=== PATIENT | female | born 1940 | race Caucasian/White ===

== ENCOUNTER 2024-06-23 16:22 | Inpatient (IN) | payer BC ==
[~2024-06-23] VITALS: Ht 167.6 cm; Wt 56.7 kg
[2024-06-23 17:42] VITALS: BP_SYST 150; PULSE 62; RESP 16; TEMP 97.6; O2SAT 99
[2024-06-23 17:49] LABS: BASOPHILS # (AUTO) 0.1 K/uL (0.0-0.2); BASOPHILS % (AUTO) 0.8 % (0.0-2.0); EOSINOPHILS # (AUTO) 0.1 K/uL (0.0-0.4); EOSINOPHILS % (AUTO) 1.2 % (0.0-4.0); HEMATOCRIT 38.6 % (36-48); HEMOGLOBIN 13.6 g/dL (12.0-16.0); LYMPHOCYTES # (AUTO) 2.3 K/uL (1.0-5.5); LYMPHOCYTES % (AUTO) 31.4 % (20.5-51.5); MEAN CORPUSCULAR HEMOGLOBIN 31 pg (27-31); MEAN CORPUSCULAR HGB CONC 35 % (32-36); MEAN CORPUSCULAR VOLUME 88 fL (79.0-98.0); MONOCYTES # (AUTO) 0.5 K/uL (0.0-1.0); MONOCYTES % (AUTO) 7.1 % (1.7-9.3); NEUTROPHILS # (AUTO) 4.3 K/uL (1.8-7.7); NEUTROPHILS % (AUTO) 59.5 % (40.0-70.0); PLATELET COUNT (AUTO) 226 K/uL (130-430); RED BLOOD CELL COUNT(AUTO) 4.37 MIL/uL (4.2-6.2); RED CELL DISTRIBUTION WIDTH 13.3 % (9.0-15.0); WHITE BLOOD COUNT (AUTO) 7.2 K/uL (4.8-10.8)
[2024-06-23 18:01] LABS: ANION GAP 11 (5-15); CALCIUM 9.9 mg/dL (8.4-11.0); CARBON DIOXIDE 25 mmol/L (23-29); CHLORIDE 105 mmol/L (98-107); GLUCOSE 95 mg/dL (74-106); POTASSIUM 4.2 mmol/L (3.5-5.1); SODIUM SERUM 141 mmol/L (136-145); UREA NITROGEN, BLOOD 31 mg/dL (8-21)
[2024-06-23 18:02] LABS: CREATINE KINASE, TOTAL 156 U/L (26-192); CREATININE 1.39 mg/dL (0.55-1.30)
[2024-06-23] MEDS: ASPIRIN 81 MG TABLET(ECOTRIN) PO ONE (18:39)
[2024-06-23] MEDS ORDERED: ROSU10TA72 PO (19:13)
[2024-06-23] MEDS ORDERED: LEVO25TA7 PO (19:13)
[2024-06-23] MEDS ORDERED: LOSA25TA18 PO (19:13)
[2024-06-23] MEDS ORDERED: TRIA1CAP6 PO (19:14)
[2024-06-23] MEDS: 0.45% NACL 1,000 ML IV SCH (19:56)
[2024-06-23 21:16] VITALS: BP_SYST 137; PULSE 62; RESP 20; TEMP 96.8; O2SAT 100
[2024-06-23 21:19] VITALS: BP_SYST 131; PULSE 68; RESP 20; TEMP 97.7; O2SAT 100
[2024-06-23] MEDS ORDERED: ZOLPIDEM TARTRATE 5 MG TABLET PO PRN (22:15)
[2024-06-23] MEDS: MELATONIN 3 MG TABLET PO PRN (23:24)
[2024-06-24 00:11] VITALS: BP_SYST 122; PULSE 50; RESP 18; TEMP 96.8; O2SAT 100
[2024-06-24] MEDS: LEVOTHYROXINE SODIUM 0.025 MG TABLET PO SCH (06:16)
[2024-06-24 06:41] LABS: BASOPHILS % (AUTO) 0.8 % (0.0-2.0); EOSINOPHILS # (AUTO) 0.2 K/uL (0.0-0.4); HEMATOCRIT 35.8 % (36-48); HEMOGLOBIN 12.2 g/dL (12.0-16.0); LYMPHOCYTES % (AUTO) 38.4 % (20.5-51.5); MEAN CORPUSCULAR HEMOGLOBIN 30 pg (27-31); MEAN CORPUSCULAR HGB CONC 34 % (32-36); MEAN CORPUSCULAR VOLUME 89 fL (79.0-98.0); MONOCYTES # (AUTO) 0.4 K/uL (0.0-1.0); MONOCYTES % (AUTO) 8.4 % (1.7-9.3); NEUTROPHILS # (AUTO) 2.6 K/uL (1.8-7.7); NEUTROPHILS % (AUTO) 49.4 % (40.0-70.0); PLATELET COUNT (AUTO) 189 K/uL (130-430); RED BLOOD CELL COUNT(AUTO) 4.02 MIL/uL (4.2-6.2); RED CELL DISTRIBUTION WIDTH 13.3 % (9.0-15.0); WHITE BLOOD COUNT (AUTO) 5.3 K/uL (4.8-10.8)
[2024-06-24 07:08] LABS: ALANINE AMINOTRANSFERASE 21 U/L (12-78); ALBUMIN 3.1 g/dL (3.4-4.8); ANION GAP 9 (5-15); ASPARTATE AMINOTRANSFERASE 27 U/L (10-37); CARBON DIOXIDE 26 mmol/L (23-29); CHLORIDE 108 mmol/L (98-107); CHOLESTEROL 106 mg/dL (<200); FREE T4 (FREE THYROXINE) 1.1 ng/dL (0.6-1.6); GLUCOSE 89 mg/dL (74-106); HDL CHOLESTEROL 56 mg/dL (>55); POTASSIUM 4.3 mmol/L (3.5-5.1); SODIUM SERUM 143 mmol/L (136-145); THYROID STIMULATING HORMONE 2.75 uIu/mL (0.34-4.82); TOTAL BILIRUBIN 0.3 mg/dL (0.0-1.0); TOTAL PROTEIN, SERUM 5.9 g/dL (6.4-8.3); TRIGLYCERIDES 42 mg/dL (30-150); UREA NITROGEN, BLOOD 25 mg/dL (8-21)
[2024-06-24 08:04] VITALS: BP_SYST 138; PULSE 59; RESP 18; TEMP 98.1; O2SAT 98
[2024-06-24] MEDS ORDERED: ASPIRIN 81 MG TABLET(ECOTRIN) PO SCH (09:00)
[2024-06-24] MEDS: ASPIRIN 81 MG TAB.CHEW PO SCH (10:27)
[2024-06-24] MEDS: LOSARTAN POTASSIUM 25 MG TABLET PO SCH (10:27)
[2024-06-24 10:40] VITALS: O2SAT 98
[2024-06-24 16:40] LABS: BILIRUBIN,URINE NEGATIVE (NEGATIVE); BLOOD, URINE NEGATIVE (NEGATIVE); CLARITY/URINE CLEAR (CLEAR); COLOR,URINE YELLOW (YELLOW); GLUCOSE,URINE NEGATIVE (NEGATIVE); KETONES,URINE NEGATIVE (NEGATIVE); LEUKOCYTE ESTERASE ,URINE NEGATIVE (NEGATIVE); NITRITE, URINE NEGATIVE (NEGATIVE); PH,URINE 6.5 (5.0-8.0); PROTEIN URINE NEGATIVE (NEGATIVE); UROBILINOGEN,URINE 0.2 (0.2-1.0)
[2024-06-24 19:41] VITALS: BP_SYST 159; PULSE 68; RESP 20; TEMP 98.4; O2SAT 97; O2SAT 99
[2024-06-24] MEDS: ATORVASTATIN 20 MG TABLET PO SCH (20:50)
[2024-06-24] MEDS ORDERED: NON-FORMULARY MEDICATION (Rosuvastatin Calcium 1 TAB) PO SCH (21:00)
[2024-06-25 00:01] VITALS: BP_SYST 120; PULSE 58; RESP 18; TEMP 97.7; O2SAT 98
[2024-06-25 07:45] VITALS: BP_SYST 123; PULSE 62; RESP 17; TEMP 97.8; O2SAT 100
[2024-06-25 11:11] VITALS: BP_SYST 138; PULSE 58; RESP 14; TEMP 98; O2SAT 99
[2024-06-25 16:13] VITALS: BP_SYST 135; PULSE 59; RESP 14; TEMP 98.2; O2SAT 98
[2024-06-25] MEDS ORDERED: ASA81 PO (17:31)
[2024-06-25 18:24] VITALS: BP_SYST 148; PULSE 67; RESP 16; TEMP 98.1; O2SAT 97
== END 2024-06-25 19:10 | disposition home or self-care (01) | DRG 640 ==
LOC: SED 16:22 → STU 19:02
PROVIDERS: ADMIT Internal Medicine; ATTEND Internal Medicine
DX: E86.0 Dehydration (principal); G93.41 Metabolic encephalopathy; G45.9 Transient cerebral ischemic attack, unspecified; G45.3 Amaurosis fugax; E78.5 Hyperlipidemia, unspecified; I25.10 Atherosclerotic heart disease of native coronary artery without angina pectoris; I10 Essential (primary) hypertension; Z95.1 Presence of aortocoronary bypass graft; Z86.73 Personal history of transient ischemic attack (TIA), and cerebral infarction without residual deficits
CPT/HCPCS: 36415; 70450-TC; 71045; 80048; 80053; 80061; 81001; 81003; 82550; 83037; 83605; 83735; 84439; 84443; 84484; 85025; 85610; 85730; 93005; 97116-GP; 97530-GP; 99291; G0378